=== PATIENT | male | born 1975 | race Caucasian/White ===

== ENCOUNTER → 2018-10-21 14:53 | Outpatient (CLI) | payer MEDICAID, SELFPAY ==
--- NOTE | 2018-10-21 15:00 | VDLE_ITS ---
Reason For Study: Swelling RIGHT GSV is normal. CFV is compressible, spontaneous, phasic, competent and demonstrates normal augmentation. FV is compressible, spontaneous, phasic, competent and demonstrates normal augmentation. POP V is compressible, spontaneous, phasic, competent and demonstrates normal augmentation. T/P Trunk is compressible. PTV is compressible. RT PerV is compressible. Procedure Exam performed in department. A preliminary report was called and/or faxed to [facility] [place]. Interpretation Summary Deep veins of the right lower extremity are patent and compressible segmentally. There is no evidence of right lower extremity deep vein thrombosis. Valvular competence appears intact within the proximal deep venous system on the right . The right great saphenous vein appears patent and compressible segmentally. Ordering Physician: Tra Becerra Referring Physician: Ganesh Mejia Performed By: Winsome Mei RVT
== END ==
PROVIDERS: Family Provider Family Medicine; PCP Family Medicine; Referring Provider Internal Medicine Hematology & Oncology; Visit Provider Internal Medicine Hematology & Oncology
DX: M79.89 Other specified soft tissue disorders (principal); C78.01 Secondary malignant neoplasm of right lung; C60.9 Malignant neoplasm of penis, unspecified
CPT/HCPCS: 93971

== ENCOUNTER → 2019-01-17 08:01 | Outpatient (CLI) | payer MEDICAID, SELFPAY ==
[2019-01-17] VITALS (7 sets, daily range): BP systolic 107–141; BP diastolic 66–89; PULSE 94–132; RESP 16; TEMP 35.8–36.3; O2SAT 96–97; BMI 31.2
== END ==
PROVIDERS: Family Provider Nurse Practitioner; PCP Nurse Practitioner; Referring Provider Internal Medicine Hematology & Oncology; Visit Provider Internal Medicine Hematology & Oncology
DX: D64.9 Anemia, unspecified (principal); C78.01 Secondary malignant neoplasm of right lung
CPT/HCPCS: 36430; 86850; 86900; 86901; 86920; 86922; J7040; P9016; A4216

== ENCOUNTER → 2019-02-11 09:30 | Outpatient (CLI) | payer MEDICAID, SELFPAY ==
[2019-01-17 08:18] VITALS: BMI 31.2
[2019-02-11] VITALS (7 sets, daily range): BP systolic 110–144; BP diastolic 66–80; PULSE 95–121; RESP 16–20; TEMP 35.7–36.5; O2SAT 95; BMI 30.8
== END ==
PROVIDERS: Family Provider Nurse Practitioner; PCP Nurse Practitioner; Referring Provider Internal Medicine Hematology & Oncology; Visit Provider Internal Medicine Hematology & Oncology
DX: C60.9 Malignant neoplasm of penis, unspecified (principal); D64.81 Anemia due to antineoplastic chemotherapy
CPT/HCPCS: 36430; 86850; 86900; 86901; 86920; 86922; J7040; P9016; A4216